=== PATIENT | female | born 1995 | race African-American/Black ===

== ENCOUNTER 2020-04-05 00:15 | Emergency (ER) | payer MEDICAID ==
[~2020-04-05] VITALS: Ht 162.6 cm; Wt 59.9 kg
[2020-04-05 00:22] VITALS: BP 131/54
--- NOTE | 2020-04-05 00:28 | NUR ---
PT TAKEN TO ER BED 11
--- NOTE | 2020-04-05 00:29 | NUR ---
24 YO F BIB SELF FOR C/C OF 10/10 GENERALIZED BODY ACHES FROM SELF DESCRIBED "SICKLE CELL CRISIS" X2 DAYS. PT STATES SHE TOOK UNKNOWN MUSCLE RELAXER OF UNKNOWN MG AT 1300 YESTERDAY WITHOUT RELIEF OF SYMPTOMS. PT DENIES ANY COVID SYMPTOMS. BED LOCKED AND IN LOWEST POSITION. SIDE RAILS X1. ALLERGIES TO MORPHINE, FENTANYL, PENICILLIN MED HX: ASTHMA, SICKLE CELL DISEASE RX: FOLIC ACID
[2020-04-05] MEDS ORDERED: NACL 0.9% 1,000 ML IV ONE (00:40)
[2020-04-05] MEDS ORDERED: KETAMINE 10 MG/ML UD SYR **ER IVP ONE (00:40)
[2020-04-05 01:00] LABS: HEMATOCRIT 28.2 % (36-48); HEMOGLOBIN 9.5 g/dL (12.0-16.0); MEAN CORPUSCULAR HEMOGLOBIN 31 pg (27-31); MEAN CORPUSCULAR HGB CONC 34 g/dL (33-37); PLATELET COUNT (AUTO) 331 K/uL (140-450); RED BLOOD CELL COUNT(AUTO) 3.06 MIL/uL (4.20-5.40); RED CELL DISTRIBUTION WIDTH 18.9 % (11.6-13.7); WHITE BLOOD COUNT (AUTO) 16.8 K/uL (4.8-10.8)
[2020-04-05] MEDS ORDERED: KETOROLAC 60 MG/2 ML VIAL IM ONE (01:10)
[2020-04-05 01:12] LABS: ALBUMIN 4.1 g/dL (3.4-5.0); ANION GAP 13.3 (8-16); CREATININE 0.6 mg/dL (0.6-1.3); POTASSIUM 3.3 mmol/L (3.5-5.1); TOTAL BILIRUBIN 2.1 mg/dL (0.0-1.0)
--- NOTE | 2020-04-05 01:13 | NUR ---
IV PLACEMENT ATTEMPTED 2 TIMES. PT REFUSING ADDITIIONAL ATTEMPTS. ERMD NOTIFIED. NEW ORDERS GIVEN.
--- NOTE | 2020-04-05 01:19 | NUR ---
PT REFUSED TORADOL 60IM IM. "THAT SHIT WON'T WORK ON ME. WHY AM I GOING TO GET SOMETHING THAT WON'T WORK ON ME."
--- NOTE | 2020-04-05 01:23 | NUR ---
PT VERBALLY AGRESSIVE AND YELLING AT STAFF. PT REFUSING MEDICAL OPTIONS ORDERED BY ERMD. PT REQUESTING PICC LINE AND TO SPEAK TO ASSISTANT GM OF CONTENT & DELIVERY.
[2020-04-05 01:36] LABS: EOSINOPHILS % (MANUAL) 2 % (0-4); LYMPHOCYTES % (MANUAL) 25 % (20-46); MONOCYTES % (MANUAL) 6 % (5-12)
--- NOTE | 2020-04-05 01:37 | NUR ---
PASTRY FINISHER AT BEDSIDE.
--- NOTE | 2020-04-05 01:42 | NUR ---
ERMD AT BEDSIDE.
[2020-04-05 01:45] VITALS: BP 131/54
--- NOTE | 2020-04-05 01:45 | NUR ---
Patient discharged with v/s stable. Patient alert, oriented and verbalized understanding of instructions. Ambulatory with steady gait. All questions addressed prior to discharge. Patient advised to follow up with PMD. Rx of HYDROXYUREA given. Patient refused to sign d/c paperwork. Pt left ER without d/c paperwork.
== END 2020-04-05 01:45 | disposition home or self-care (01) ==
LOC: MED 00:15
DX: D57.1 Sickle-cell disease without crisis (principal); J45.909 Unspecified asthma, uncomplicated; Z88.0 Allergy status to penicillin; Z88.6 Allergy status to analgesic agent; Z96.643 Presence of artificial hip joint, bilateral
CPT/HCPCS: 36415; 80053; 85025; 85045; 99283; J1885